=== PATIENT | female | born 1955 | race Caucasian/White ===

== ENCOUNTER 2024-12-27 14:09 | Inpatient (IN) | payer MEDICARE ==
[~2024-12-27] VITALS: Ht 154.9 cm; Wt 67.0 kg
[2024-12-27 14:25] LABS: PLATELET COUNT (AUTO) 174 K/uL (150-450); RED BLOOD CELL COUNT(AUTO) 4.59 MIL/uL (4.00-5.20); RED CELL DISTRIBUTION WIDTH 13.5 % (11.5-14.5); WHITE BLOOD COUNT (AUTO) 6.3 K/uL (4.5-11.0)
[2024-12-27 14:37] LABS: CALCIUM, TOTAL 8.5 mg/dL (8.8-10.5); CREATININE 0.81 mg/dL (0.60-1.30); GLOMERULAR FILTR. RATE CALC > 60 mL/min (>60); GLUCOSE,RANDOM 178 mg/dL (70-110); SODIUM SERUM 134 mmol/L (136-145); UREA NITROGEN, BLOOD 15 mg/dL (7-18)
[2024-12-27 14:42] LABS: CREATINE KINASE, TOTAL ONLY 149 U/L (26-192)
[2024-12-27] MEDS ORDERED: PREG25 PO (14:43)
[2024-12-27] MEDS ORDERED: CLON-595 PO (14:43)
[2024-12-27] MEDS ORDERED: LISI-893 PO (14:43)
[2024-12-27 14:47] LABS: TROPONIN I-HIGH SENSITIVITY 4 ng/L (<51)
[2024-12-27] MEDS: SODIUM CHLORIDE 0.9% 2,000 ML IV ONE (15:05)
[2024-12-27 16:31] LABS: APPEARANCE,URINE CLEAR (CLEAR); GLUCOSE, URINE (UA) NEGATIVE (NEGATIVE); NITRATE,URINE NEGATIVE (NEGATIVE); OCCULT BLOOD,URINE NEGATIVE (NEGATIVE); SPECIFIC GRAVITIY, URINE 1.006 (1.003-1.030)
[2024-12-27 16:33] LABS: LEUKOCYTE ESTERASE ,URINE NEGATIVE (NEGATIVE)
[2024-12-27] MEDS ORDERED: MAGNESIUM HYDROXIDE SUSPENSION 30 ML UDCUP PO PRN (16:45)
[2024-12-27] MEDS ORDERED: MORPHINE SULFATE 2 MG/ML SYRINGE IVP PRN (16:45)
[2024-12-27] MEDS ORDERED: BISACODYL 10 MG RECTAL RECTAL SUPPOSITORY PR PRN (16:45)
[2024-12-27] MEDS ORDERED: ZOLPIDEM TARTRATE 5 MG TABLET PO PRN (16:45)
[2024-12-27] MEDS ORDERED: HYDROCODONE/ACETAMINOPHEN 5-325 MG TABLET PO PRN (16:45)
[2024-12-27] MEDS ORDERED: ACETAMINOPHEN 325 MG TABLET PO PRN (16:45)
[2024-12-27] MEDS ORDERED: ONDANSETRON HCL 4 MG/2 ML VIAL IVP PRN (16:45)
[2024-12-27] MEDS: DOCUSATE SODIUM 100 MG CAPSULE PO SCH (20:04)
[2024-12-27 20:30] VITALS: BP 133/59; PULSE 62
[2024-12-27 20:35] VITALS: BP 140/71; PULSE 63
[2024-12-27 20:40] VITALS: BP 144/75; PULSE 63
[2024-12-27 20:48] VITALS: BP 133/59; PULSE 62; RESP 19; TEMP 98.1; O2SAT 94
[2024-12-27] MEDS: PREGABALIN 25 MG CAPSULE PO SCH (21:21)
[2024-12-27] MEDS: HEPARIN SODIUM,PORCINE 5,000 UNITS/ML VIAL SQ SCH (23:22)
[2024-12-28] VITALS (18 sets, daily range): BP systolic 95–119; BP diastolic 45–77; PULSE 57–85; RESP 17–20; TEMP 97.5–98.6; O2SAT 95–98
[2024-12-28 06:10] LABS: PLATELET COUNT (AUTO) 161 K/uL (150-450); RED BLOOD CELL COUNT(AUTO) 4.52 MIL/uL (4.00-5.20); RED CELL DISTRIBUTION WIDTH 13.4 % (11.5-14.5); WHITE BLOOD COUNT (AUTO) 4.4 K/uL (4.5-11.0)
[2024-12-28 06:13] LABS: CALCIUM, TOTAL 8.2 mg/dL (8.8-10.5); CREATININE 0.72 mg/dL (0.60-1.30); GLOMERULAR FILTR. RATE CALC > 60 mL/min (>60); GLUCOSE,RANDOM 116 mg/dL (70-110); SODIUM SERUM 139 mmol/L (136-145); UREA NITROGEN, BLOOD 15 mg/dL (7-18)
[2024-12-28] MEDS: PANTOPRAZOLE SODIUM 40 MG DR TABLET PO SCH (08:18)
[2024-12-28] MEDS ORDERED: PREGABALIN 25 MG CAPSULE PO SCH (09:00)
[2024-12-29 03:58] VITALS: BP 100/60; PULSE 77; RESP 18; TEMP 97.5; O2SAT 98
[2024-12-29 06:08] LABS: PLATELET COUNT (AUTO) 175 K/uL (150-450); RED BLOOD CELL COUNT(AUTO) 4.77 MIL/uL (4.00-5.20); RED CELL DISTRIBUTION WIDTH 13.2 % (11.5-14.5); WHITE BLOOD COUNT (AUTO) 4.5 K/uL (4.5-11.0)
[2024-12-29 06:19] LABS: CALCIUM, TOTAL 8.5 mg/dL (8.8-10.5); CREATININE 0.69 mg/dL (0.60-1.30); GLOMERULAR FILTR. RATE CALC > 60 mL/min (>60); GLUCOSE,RANDOM 123 mg/dL (70-110); SODIUM SERUM 138 mmol/L (136-145); UREA NITROGEN, BLOOD 16 mg/dL (7-18)
[2024-12-29 08:50] VITALS: BP 114/65; PULSE 78; RESP 19; TEMP 97.9; O2SAT 97
[2024-12-29 12:02] VITALS: BP 118/58; PULSE 77; RESP 16; TEMP 98.1; O2SAT 97
== END 2024-12-29 13:25 | disposition home or self-care (01) | DRG 312 ==
LOC: EMS 14:11 → EDH 15:16 → 5S 20:40
PROVIDERS: ADMIT Internal Medicine; ATTEND Internal Medicine
DX: R55 Syncope and collapse (principal); E78.00 Pure hypercholesterolemia, unspecified; I10 Essential (primary) hypertension; F41.9 Anxiety disorder, unspecified; R73.03 Prediabetes; Z98.1 Arthrodesis status
CPT/HCPCS: 70450; 71045; 80048; 81003; 82550; 83036; 83880; 84484; 85025; 85610; 85730; 93005; 93306; 93880; 99285; G0378; J1644; 36415-L1; 36415-TC